=== PATIENT | male | born 1960 | race African-American/Black ===

== ENCOUNTER 2016-10-11 12:34 | Emergency (ER) | payer BC ==
[~2016-10-11] VITALS: Ht 188 cm; Wt 104.3 kg
[2016-10-11 12:34] VITALS: BP 148/69
== END 2016-10-11 15:15 | disposition home or self-care (01) ==
LOC: ER 12:35
DX: M25.561 Pain in right knee (principal); G89.29 Other chronic pain; Z86.73 Personal history of transient ischemic attack (TIA), and cerebral infarction without residual deficits
CPT/HCPCS: 73562; 99284; A4606; Z7610

== ENCOUNTER 2018-04-29 09:00 | Emergency (ER) | payer BC, OTHER ==
[~2018-04-29] VITALS: Ht 188 cm; Wt 113.4 kg
--- NOTE | 2018-04-29 09:00 | NUR ---
PT AMBULATORY TO ER BED 03. PRESENT W/ POSTERIOR SCALP LACERATION. NO ACTIVE BLEEDING. PT UNABLE TO RECALL WHAT HAPPEN. PT ADMITS TO DRINKING ALCOHOL LAST NIGHT. HX OF STROKE 2 YEARS AGO. 10/05 PAIN. NO NEURO DEFICIT NOTED. AWAITING MD WHITLOCK.
--- NOTE | 2018-04-29 09:15 | NUR ---
DR LEE AT BEDSIDE FOR EVAL.
[2018-04-29] MEDS ORDERED: LIDOCAINE 1%-EPI 1:100,000 20 ML VIAL ONE ×2 (09:26→09:49)
[2018-04-29] MEDS ORDERED: TDAP [DIPH/PERTUSSIS/TET] 0.5 ML VIAL IM ONE ×2 (09:26→09:30)
[2018-04-29] MEDS ORDERED: LIDOCAINE 1%-EPI 1:100,000 20 ML VIAL TP ONE (09:30)
[2018-04-29 09:37] LABS: BASOPHILS # (AUTO) 0.2 /CMM (0.0-0.2); BASOPHILS % (AUTO) 1.8 % (0.0-2.0); EOSINOPHILS % (AUTO) 2.1 % (0.0-6.0); HEMATOCRIT 40 % (39-51); HEMOGLOBIN 13.1 g/dL (13.5-17.5); LYMPHOCYTES # (AUTO) 1.4 /CMM (0.8-4.8); LYMPHOCYTES % (AUTO) 13.5 % (20.0-44.0); MEAN CORPUSCULAR HEMOGLOBIN 29 PG (26.0-33.0); MEAN CORPUSCULAR HGB CONC 33 g/dl (31.0-36.0); MEAN CORPUSCULAR VOLUME 90 fL (80-96); MONOCYTES # (AUTO) 0.7 /CMM (0.1-1.30); NEUTROPHILS # (AUTO) 7.8 /CMM (1.8-8.9); NEUTROPHILS % (AUTO) 75.6 % (43.0-81.0); PLATELET COUNT (AUTO) 270 /CMM (150-450); RED BLOOD CELL COUNT(AUTO) 4.47 MIL/uL (4.5-6.0); WHITE BLOOD COUNT (AUTO) 10.3 K/uL (4.3-11.0)
[2018-04-29 09:46] LABS: CALCIUM, SERUM 9.3 mg/dL (8.5-10.1); CARBON DIOXIDE 25 mmol/L (21-32); CHLORIDE 103 mmol/L (98-107); CREATININE 1.1 mg/dL (0.6-1.3); GLUCOSE 116 mg/dL (74-106); POTASSIUM 3.9 mmol/L (3.5-5.1); SODIUM SERUM 134 mmol/L (136-145); UREA NITROGEN, BLOOD 12 mg/dL (7-18)
[2018-04-29 09:52] LABS: ALANINE AMINOTRANSFERASE 31 U/L (12-78); ALBUMIN 3.5 g/dL (3.4-5.0); ALKALINE PHOSPHATASE 79 U/L (46-116); ASPARTATE AMINOTRANSFERASE 27 U/L (15-37); BILIRUBIN,DIRECT 0.1 mg/dL (0.0-0.2); BILIRUBIN,TOTAL 0.4 mg/dL (0.2-1.0); TOTAL PROTEIN, SERUM 7.6 g/dL (6.4-8.2)
[2018-04-29 09:54] LABS: TROPONIN I < 0.017 ng/mL (0.00-0.056)
[2018-04-29 09:59] LABS: INR 0.9 (0.85-1.15)
[2018-04-29 10:48] VITALS: BP 126/78
--- NOTE | 2018-04-29 10:49 | NUR ---
Patient discharged to home in stable condition. Written and verbal after care instructions given. Patient verbalizes understanding of instruction.
== END 2018-04-29 10:50 | disposition home or self-care (01) ==
LOC: ER 09:06
DX: S01.01XA Laceration without foreign body of scalp, initial encounter (principal); R55 Syncope and collapse; F10.10 Alcohol abuse, uncomplicated; Y90.9 Presence of alcohol in blood, level not specified; Z86.73 Personal history of transient ischemic attack (TIA), and cerebral infarction without residual deficits; W18.30XA Fall on same level, unspecified, initial encounter; Y93.89 Activity, other specified; Y92.89 Other specified places as the place of occurrence of the external cause; Y99.8 Other external cause status
CPT/HCPCS: 12004; 36415; 70450; 80048; 80076; 84484; 85025; 85730; 90471; 90715; 93005; 99285; A4606; A6403; J3490 ×2; Z7610

== ENCOUNTER 2021-02-02 20:37 | Emergency (ER) | payer BC, OTHER ==
[~2021-02-02] VITALS: Ht 188 cm; Wt 112.5 kg
--- NOTE | 2021-02-02 20:45 | NUR ---
IV LINE ESTABLISHED LAC 18 G. BLOOD COLLECTED
--- NOTE | 2021-02-02 20:45 | NUR ---
PT CAME FROM HOME C/O WEAKNESS AND NUMBNESS ON THE UPPER BILATERAL EXTREMITIES S/P DENTAL APPT TODAY. PT ALSO UNBALE TO URINATE. PT AAOX4, VSS, CONNECTED TO THE ASSOCIATE [employer] AND POX.
[2021-02-02] MEDS ORDERED: IV NS 0.9% 1,000 ML IV ONE (22:00)
[2021-02-02 22:05] LABS: BASOPHILS % (AUTO) 0.2 % (0.0-2.0); EOSINOPHILS % (AUTO) 1.5 % (0.0-6.0); HEMATOCRIT 45 % (39-51); HEMOGLOBIN 14.6 g/dL (13.5-17.5); LYMPHOCYTES # (AUTO) 0.2 /CMM (0.8-4.8); LYMPHOCYTES % (AUTO) 1.4 % (20.0-44.0); MEAN CORPUSCULAR HGB CONC 33 g/dl (31.0-36.0); MEAN CORPUSCULAR VOLUME 93 fL (80-96); MONOCYTES # (AUTO) 1.3 /CMM (0.1-1.30); MONOCYTES % (AUTO) 9.7 % (2.0-12.0); NEUTROPHILS # (AUTO) 11.4 /CMM (1.8-8.9); NEUTROPHILS % (AUTO) 87.2 % (43.0-81.0); PLATELET COUNT (AUTO) 236 /CMM (150-450); RED BLOOD CELL COUNT(AUTO) 4.82 MIL/uL (4.5-6.0)
[2021-02-02 22:20] LABS: CALCIUM, SERUM 9.9 mg/dL (8.5-10.1); CREATININE 1.6 mg/dL (0.6-1.3); POTASSIUM 4.2 mmol/L (3.5-5.1)
[2021-02-02 22:27] LABS: ALBUMIN 4.2 g/dL (3.4-5.0); BILIRUBIN,DIRECT 0.1 mg/dL (0.0-0.2); BILIRUBIN,TOTAL 0.6 mg/dL (0.2-1.0); TOTAL PROTEIN, SERUM 8.5 g/dL (6.4-8.2)
[2021-02-02 23:21] LABS: BILIRUBIN,URINE MODERATE (NEGATIVE); COLOR,URINE YELLOW (YELLOW); LEUKOCYTE ESTERASE ,URINE NEGATIVE (NEGATIVE); NITRITE, URINE NEGATIVE (NEGATIVE); PH,URINE 5.5 (5.0-8.0); PROTEIN,URINE 100 mg/dl (NEGATIVE); UGLUCOSE NEGATIVE (NEGATIVE); UROBILINOGEN,URINE 0.2 EU/dL (0.2)
[2021-02-02 23:32] LABS: BACTERIA,URINE 1+ /HPF (None Seen); MUCUS,URINE Many /LPF (None Seen); SQUAMOUS EPITHELIAL CELL,UR Many /HPF (None Seen); URINE AMORPHOUS URATE Many /HPF (None Seen)
[2021-02-02] MEDS ORDERED: SULF1TAB48 PO (23:44)
--- NOTE | 2021-02-02 23:54 | NUR ---
Patient discharged to home in stable condition. Written and verbal after care instructions given. Patient verbalizes understanding of instruction.IV removed. Catheter intact and site benign. Pressure and 4x4 applied to site. No bleeding noted.
[2021-02-02 23:55] VITALS: BP 121/84
== END 2021-02-02 23:55 | disposition home or self-care (01) ==
LOC: ER 20:41
DX: N39.0 Urinary tract infection, site not specified (principal); R42 Dizziness and giddiness; I10 Essential (primary) hypertension; E78.5 Hyperlipidemia, unspecified; Z86.73 Personal history of transient ischemic attack (TIA), and cerebral infarction without residual deficits
CPT/HCPCS: 36415; 80048; 80076; 81001; 83690; 85025; 87086; 93005; 96360; 99284; J7030 ×2